=== PATIENT | female | born 1995 | race Hispanic/Latino ===

== ENCOUNTER 2022-04-01 11:19 | Emergency (ER) | payer OTHER ==
[~2022-04-01] VITALS: Ht 170.2 cm; Wt 95.3 kg
[2022-04-01] MEDS ORDERED: OSEL75 PO (13:14)
[2022-04-01] MEDS ORDERED: AZIT250T9 PO (13:14)
[2022-04-01] MEDS ORDERED: BENZ-39 PO (13:14)
[2022-04-01 13:28] VITALS: BP 138/56
== END 2022-04-01 13:46 | disposition home or self-care (01) ==
LOC: EDH 11:19
DX: J10.1 Influenza due to other identified influenza virus with other respiratory manifestations (principal); B34.9 Viral infection, unspecified; Z20.822 Contact with and (suspected) exposure to COVID-19
CPT/HCPCS: 99283; 87635; 87880; 87804 ×2; C9803